=== PATIENT | female | born 1965 | race Caucasian/White ===

== ENCOUNTER 2016-11-27 08:00 | Outpatient (CLI) | payer MEDICARE, MEDICAID | END 2016-11-27 08:01 | disposition home or self-care (01) | DX: R82.99 Other abnormal findings in urine (principal) ==

== ENCOUNTER 2017-01-11 09:24 | Outpatient (CLI) | payer MEDICARE, MEDICAID | END 2017-01-11 09:25 | disposition home or self-care (01) | DX: E55.9 Vitamin D deficiency, unspecified (principal); E03.9 Hypothyroidism, unspecified; Z79.899 Other long term (current) drug therapy ==

== ENCOUNTER 2017-07-18 11:08 | Outpatient (CLI) | payer MEDICARE, MEDICAID ==
--- NOTE | 2017-07-18 12:45 | Ultrasound Report ---
PELVIC ULTRASOUND: 07/18/2017 CLINICAL INDICATION: Postmenopausal bleeding, left ovarian cyst on office ultrasound. TECHNIQUE: Transabdominal pelvic ultrasound performed for global evaluation. Real-time scanning per formed and static images obtained. FINDINGS: The uterus is anteverted, measuring 6.9 x 5.2 x 3.7 cm. The endometrial echo complex is t hickened for a postmenopausal patient, measuring 14 mm. No focal myometrial lesion is seen. The rig ht ovary is not confidently identified on transabdominal imaging. There is a large cyst in the left adnexa, measuring 9.1 x 6.3 x 5.9 cm, likely ovarian in origin, but no definite surrounding ovarian t issue can be identified on transabdominal imaging. No free fluid is present. IMPRESSION: 1. ENDOMETRIAL HYPERPLASIA FOR A POSTMENOPAUSAL PATIENT. 2. A 9.1 CM LEFT ADNEXAL CYST. WHILE THIS MAY BE OVARIAN IN ORIGIN, DEFINITE OVARIAN TISSUE COULD N OT BE IDENTIFIED ON TRANSABDOMINAL IMAGING. JOB #: [id number] EXT JOB #:[id number]
== END 2017-07-18 11:09 | disposition home or self-care (01) ==
LOC: DI 11:08
PROVIDERS: ATTEND Obstetrics & Gynecology
DX: D27.1 Benign neoplasm of left ovary (principal); N85.00 Endometrial hyperplasia, unspecified
CPT/HCPCS: 76856

== ENCOUNTER 2017-09-30 08:41 | Outpatient (CLI) | payer MEDICARE, MEDICAID ==
[2017-09-30 12:56] LABS: ALBUMIN/GLOBULIN RATIO 1.3 (1.0-2.2); ALKALINE PHOSPHATASE 54 IU/L (42-121); ALT ALANINE AMINOTRANSFERASE 22 IU/L (10-60); AST ASPARTATE AMINOTRANSFERASE 26 IU/L (10-42); BILIRUBIN,TOTAL 0.7 mg/dL (0.2-1.0); BUN - BLOOD UREA NITROGEN 13 mg/dL (6-20); CALCIUM 8.6 mg/dL (8.5-10.3); CARBON DIOXIDE - CO2 28 mmol/L (21-32); CHLORIDE 100 mmol/L (101-111); CREATININE 0.8 mg/dL (0.4-1.0); GFR - MDRD 76 (>89); GLUCOSE 86 mg/dL (70-100); SODIUM 137 mmol/L (135-145)
[2017-09-30 13:15] LABS: THYROID STIMULATING HORMONE 9.66 uIU/mL (0.34-5.60)
[2017-09-30 15:05] LABS: FREE T4 (FREE THYROXINE) 0.8 ng/dL (0.58-1.64)
== END 2017-09-30 08:42 | disposition home or self-care (01) ==
LOC: LAB.N 08:41
PROVIDERS: ATTEND Family Medicine
DX: F32.3 Major depressive disorder, single episode, severe with psychotic features (principal); E03.9 Hypothyroidism, unspecified; Z51.81 Encounter for therapeutic drug level monitoring; Z79.899 Other long term (current) drug therapy
CPT/HCPCS: 36415; 80053; 84439; 84443

== ENCOUNTER 2017-10-01 14:57 | Outpatient (CLI) | payer MEDICARE, MEDICAID ==
[2017-10-01 15:18] LABS: BASOPHILS % (AUTO) 0.5 %; EOSINOPHILS # (AUTO) 0.3 10^3/uL (0.0-0.7); HGB - HEMOGLOBIN 11.7 g/dL (12.0-16.0); LYMPHOCYTES # (AUTO) 1.4 10^3/uL (1.5-3.5); LYMPHOCYTES % (AUTO) 21.7 %; MEAN CORPUSCULAR HEMOGLOBIN 30.3 pg (27.0-31.0); MEAN CORPUSCULAR HGB CONC 33.5 g/dL (32.0-36.0); MEAN CORPUSCULAR VOLUME 90.2 fL (81.0-99.0); MEAN PLATELET VOLUME 9.4 fL (7.9-10.8); MONOCYTES # (AUTO) 0.6 10^3/uL (0.0-1.0); MONOCYTES % (AUTO) 9.6 %; NEUTROPHILS # (AUTO) 4.1 10^3/uL (1.5-6.6); NEUTROPHILS % (AUTO) 63.2 %; PLT - PLATELET COUNT 140 10^3/uL (130-450); RED BLOOD COUNT 3.87 10^6/uL (4.20-5.40); RED CELL DISTRIBUTION WIDTH 13.8 % (12.0-15.0); WHITE BLOOD COUNT 6.5 x10^3/uL (4.8-10.8)
[2017-10-01 15:54] LABS: HCG,QUALITATIVE BLOOD NEGATIVE
== END 2017-10-01 14:58 | disposition home or self-care (01) ==
LOC: LAB 14:57
PROVIDERS: ATTEND Obstetrics & Gynecology
DX: Z01.812 Encounter for preprocedural laboratory examination (principal); R19.04 Left lower quadrant abdominal swelling, mass and lump
CPT/HCPCS: 36415; 84703; 85025; 86850; 86900; 86901

== ENCOUNTER 2017-10-02 10:34 | Inpatient (IN) | payer MEDICARE, MEDICAID ==
[~2017-10-02 10:34] MED LIST: CELECOXIB 100 MG CAPSULE PO ONE; SCOPOLAMINE PATCH TOP ONE
[2017-10-02] MEDS ORDERED: LACTATED RINGERS 1,000 ML IV ONE ×3 (11:15→14:56)
--- NOTE | 2017-10-02 11:22 | PREOP HISTORY & PHYSICAL ---
DATE OF ANTICIPATED SURGERY: 10/02/2017 IDENTIFICATION: A 52-year-old G0. HISTORY OF PRESENT ILLNESS: Patient is a patient of [facility] who presents for her preoperative visit. She has been scheduled for 10/02/2017 , laparoscopic bilateral salpingo-oophorectomy and hysteroscopy and D and C. The patient had an episode of postmenopausal bleeding. She saw Dr. Clemons on 07/15/2017 after not having any bleeding for the last 4 years previously. Workup revealed 07/18/2017 pelvic ultrasound that the uterus was anteverted, measuring 6.9 x 5.2 x 3.5 cm. Endometrial echo complex measured 14 mm. No focal myometrial lesion. Right ovary not confidently identified. Large cyst in the left adnexa measuring 9.1 x 6.3 x 5.9 cm, likely ovarian in origin, but no definitive surrounding ovarian tissue could be identified. No free fluid. Her most recent Pap smear of 02/16/2013 was negative, as well as a screen for the high risk human papillomavirus. Given these findings, I recommended to the patient that we proceed to a laparoscopic bilateral salpingo-oophorectomy and hysteroscopy, dilatation and curettage. I discussed with her the risks, benefits, alternatives, indications , expectations of surgery, including the risk for hemorrhage, infection, and damage to surrounding organs, which may be an inadvertent laceration cauterization or ligation of adjacent intestines, ureters, and bladder. Particularly with a hysteroscopy, there may be a chance for an inadvertent uterine perforation. If there were a concern for malignancy, I may have to proceed to a hysterectomy. With this procedure, she will no longer have periods , nor will she be able to have children. After all the patient's questions were answered to her satisfaction, she verbalized her desire to proceed with surgery. Consent forms have been signed. The patient otherwise is doing well. Denies any nausea, vomiting, fevers, chills, diarrhea, constipation. She is accompanied today with her power nut runner operator, Autumn. The patient is developmentally delayed and has the mentation of a 7th or 8th grade level. She is her own power of cleaning associate. Her mother is Barbara Corey, and she lives by herself. Her other caretakers that we have been seeing here in the office are Laurie and Mari from [employer]. PAST MEDICAL HISTORY 1. Developmental delay. 2. Overactive bladder. 3. History of right breast mass. 4. Vitamin D deficiency. PAST SURGICAL HISTORY 1. Right breast biopsy. 2. Cholecystectomy. 3. Appendectomy. ALLERGIES: NO KNOWN DRUG ALLERGIES. MEDICATIONS 1. Two gummy multivitamins. 2. Levothyroxine 50 mcg. 3. Vitamin D. 4. Venlafaxine 150 mg and 37.5 mg daily. 5. Spironolactone 50 mg. 6. Oxybutynin 30 mg. SOCIAL HISTORY: The patient denies any tobacco, alcohol, or illicit drug use. Again, she is developmentally delayed. She does live by herself and has supplemental care with [employer]. She likes [employer], the [employer] , Edna Potter, Raquel Potter, and Clyde Garcia. PAST OBSTETRICAL HISTORY: Nulligravida. PAST GYNECOLOGIC HISTORY: She has been menopausal for at least 4 years. FAMILY HISTORY: Noncontributory. PHYSICAL EXAMINATION VITAL SIGNS: Height is 5 feet, weight is 144 pounds, blood pressure 98/64. GENERAL: The patient is a well-developed, well-nourished, female, in no apparent distress. She definitely acts like a developmentally delayed adult. She is very pleasant and will get quite excited about topics that she is interested in. She is, however, having difficulty answering more complex questions and will look towards her caregiver for answers. HEENT: The patient does wear glasses. She does look she is presbyopic. CARDIOVASCULAR: Rate is regular. No murmurs, rubs. LUNGS: Lungs are clear to auscultation bilaterally. ABDOMEN: Soft, nontender. No masses, rebound, rigidity or guarding. LABORATORY DATA: Most recent laboratories were done by her primary care provider, Dr. Ray on 09/30/2017. Sodium was 137, potassium 3.8, BUN 13, creatinine 0.8, glucose 88, AST 26, ALT 22. TSH is elevated at 9.66, free T4 is normal at 0.8. ASSESSMENT 1. A 52-year-old G0. 2. Postmenopausal bleeding. 3. Thickened endometrium. 4. Left ovarian mass, most likely a benign cyst. PLAN 1. We will proceed to a scheduled laparoscopic bilateral salpingo-oophorectomy and hysteroscopy, and dilatation and curettage on 10/02/2017. 2. I discussed with the patient that though I intend to only do a laparoscopic bilateral salpingo-oophorectomy, should there be a concern for malignancy, I may have to proceed to a hysterectomy. She understands this and verbally agrees to it. Because of this, a CBC and type and screen will be obtained in addition to a serum hCG. 3. Prescriptions for ibuprofen and Tylenol have been faxed to [facility] in [place], [place]. A handwritten prescription for Vicodin has been given to the patient for breakthrough pain. 4. Patient to see me in 2 weeks for a routine postop visit. 5. Patient to call me should she have any worsening fevers, chills, abdominal pain, or vaginal bleeding. TD: 10/01/2017 19:35 MTDD
[2017-10-02] MEDS ORDERED: ceFAZolin 1 GM VIAL IV ONE (12:30)
[2017-10-02] MEDS ORDERED: NEOSTIGMINE 1 MG/1 ML 10 ML MDV IVP ONE (12:30)
[2017-10-02] MEDS ORDERED: PROPOFOL 200 MG/20 ML VIAL IVP ONE (12:30)
[2017-10-02] MEDS ORDERED: ONDANSETRON 4 MG/2 ML VIAL IVP ONE (12:30)
[2017-10-02] MEDS ORDERED: ROCURONIUM 50 MG/5 ML VIAL IVP ONE (12:30)
[2017-10-02] MEDS ORDERED: SUCCINYLCHOLINE 200 MG/10 ML VIAL IVP ONE (12:30)
[2017-10-02] MEDS ORDERED: GLYCOPYRROLATE 1 MG/5 ML VIAL IVP ONE (12:30)
[2017-10-02] MEDS ORDERED: DEXAMETHASONE 4 MG/ML VIAL IVP ONE (12:30)
[2017-10-02] MEDS ORDERED: PHENYLEPHRINE 50 MG/5 ML VIAL IV ONE (12:30)
[2017-10-02] MEDS ORDERED: MIDAZOLAM 2 MG/2 ML VIAL IVP ONE (12:30)
[2017-10-02] MEDS ORDERED: KETOROLAC 30 MG/ML VIAL IVP ONE (12:30)
[2017-10-02] MEDS ORDERED: ePHEDrine 50 MG/ML VIAL IVP ONE (12:30)
[2017-10-02] MEDS ORDERED: HYDROmorphone 1 MG/ML SYRINGE IM ONE (12:30)
[2017-10-02] MEDS ORDERED: fentaNYL 100 MCG/2 ML VIAL IVP ONE (12:30)
[2017-10-02] MEDS ORDERED: LIDOCAINE 1%-EPI 1:100000 20 ML MDV SUBQ ONE (13:06)
--- NOTE | 2017-10-02 15:41 | OPERATIVE REPORT ---
Operative Report - Other Other Information/Narrative: Date of operation: 10/02/2017 Surgeon: Kamilah Tinoco DO FACOG Road Machine Runner: Rodrick Sorto MD FACOG Anesthetists: 1. Juarez Franco CRNA 2. Ernestina Vela CRNA Anesthesia: GET Pre-Op Dx: 1. 52 yo G0 2. Postmenopausal bleeding 3. Left ovarian mass Post-Op Dx: 1. 52 yo G0 2. Postmenopausal bleeding 3. Left ovarian endometrioma 4. Abdominal and pelvic adhesions Procedures: 1. Attempted laparoscopy via Tessa technique 2. Exploratory laparotomy 3. Left salpingo-oophorectomy 4. Adhesiolysis between small intestines and uterine fundus 5. Hysteroscopy dilation and curettage Findings: 1. Anterior wall adhesions to both the small bowel and omentum 2. Left ovarian endometrioma 3. Adhesion between the small bowel and right uterine fundus 4. Surgically absent right adnexa 5. Hypertrophic endometrium 6. Post-op plain films of pelvis and ovaries negative for retained surgical instruments Specimens: 1. Left ovary and fallopian tube 2. Pap smear 3. Endometrial curettings Drains: 1. Perkins catheter to gravity 2. Prevena wound vacuum EBL: 300 mL Complications: None Dictation: [id number]
[2017-10-02] MEDS: HYDROmorphone 1 MG/ML SYRINGE ONE ×2 (15:42→15:55)
[2017-10-02] MEDS ORDERED: SODIUM CHLORIDE FLUSH 0.9% 10 ML SYRINGE ONE (15:46)
[2017-10-02] MEDS ORDERED: ONDANSETRON 4 MG/2 ML VIAL ONE (16:04)
[2017-10-02] MEDS ORDERED: ZOLPIDEM 5 MG TABLET PO PRN (16:10)
[2017-10-02] MEDS ORDERED: diphenhydrAMINE 25 MG CAPSULE PO PRN (16:15)
[2017-10-02] MEDS ORDERED: LORazepam 2 MG/ML VIAL IVP PRN (16:18)
--- NOTE | 2017-10-02 16:35 | XRAY Report ---
DATE OF SERVICE: 10/02/2017 SUPINE ABDOMEN: 10/02/2017 CLINICAL INDICATION: Incorrect instrument count. FINDINGS: Supine views of the abdomen demonstrate clips from previous cholecystectomy. No retained surgical instrument is identified. The bowel gas pattern appears unremarkable. IMPRESSION: NO EVIDENCE OF A RETAINED SURGICAL INSTRUMENT. CRITICAL TEST: RESULTS CALLED TO OPERATING ROOM 2 ON 10/02/2017 AT 1455 HOURS. TD: 10/02/2017 17:34
[2017-10-02] MEDS: oxyCODONE 5 MG TABLET PO SCH ×3 (17:52→20:32)
--- NOTE | 2017-10-02 17:53 | OPERATIVE REPORT ---
DATE OF OPERATION: 10/02/2017 SURGEON: Kamilah Tinoco DO, FACOG MOUNT LOADER: Rodrick Sorto MD, FACOG ANESTHETISTS: 1. Juarez Franco CRNA 2. Ernestina Vela CRNA ANESTHESIA: General endotracheal tube. PREOPERATIVE DIAGNOSES: 1. A 52-year-old G0. 2. Postmenopausal bleeding. 3. Left ovarian mass. POSTOPERATIVE DIAGNOSES: 1. A 52-year-old G0. 2. Postmenopausal bleeding. 3. Left ovarian endometrioma. 4. Abdominal wall and pelvic adhesions. PROCEDURES: 1. Attempted laparoscopic abdominal entrance via Tessa technique. 2. Exploratory laparotomy. 3. Left salpingo-oophorectomy. 4. Adhesiolysis between the small intestine and uterine fundus. 5. Hysteroscopy, dilatation and curettage. FINDINGS: 1. Anterior abdominal wall adhesions to both the small bowel and the omentum in the periumbilical area. 2. Left ovarian endometrioma. 3. Adhesions between the small bowel and the uterine fundus. 4. Surgically absent right adnexa. 5. Hypertrophic endometrium. 6. Postoperative plain films of the pelvis and ovaries, negative for retained surgical instruments. 7. Significant dermatocandidiasis below her breasts and in her perineum. SPECIMENS: 1. Pelvic washings. 2. Left ovary and fallopian tube. 3. Pap smear and HR HPV. 4. Endometrial curettings. DRAINS 1. Perkins catheter to gravity. 2. Prevena wound vacuum. ESTIMATED BLOOD LOSS: 300 mL COMPLICATIONS: None. BRIEF HISTORY: The patient is a patient of [facility] who presented to us with complaints of postmenopausal bleeding. She had been postmenopausal for the last 4 years and had a heavy vaginal bleed. Workup showed that not only did she have a thickened endometrium at 14 mm, but she also had an incidental finding of a left ovarian cyst measuring approximately 9 cm. Given the clinical situation, it was recommended to the patient that we proceed to surgery for more definitive diagnosis and treatment. The patient's history has been more complicated given that she has a developmental delay and is a poor historian. I discussed with her my recommendation to proceed with a laparoscopic bilateral salpingo-oophorectomy and hysteroscopy, dilatation and curettage. I did discuss with the patient that if the cyst had a malignant potential, I would need to proceed to exploratory laparotomy and a hysterectomy. Though hesitant, she understood the conversation and verbalized her desire to proceed with that plan should the suspicion of cancer come up. Furthermore, with this procedure, the patient would no longer be able to have children. After the patient's questions were answered to her satisfaction, she verbalized her desire to proceed with surgery. Consent forms have been signed. OPERATION IN DETAIL: The patient was identified, consented, and taken to the operating room where IV access was already in place. She was then given sequential compression devices which were placed on her lower extremities and turned on. The patient was given Ativan in the preoperative area as well as scopolamine patch 1.5 mg, since she had indicated that she has a tendency to have nausea and vomiting. She also received Celebrex preoperatively in order to improve her postoperative pain. The patient was given satisfactory general endotracheal tube anesthesia as per Ernestina Vela. Juarez Franco later helped with anesthesia during the case. The patient was then prepped and draped in a normal sterile fashion in lithotomy position using the Yellofin stirrups. Since the patient was developmentally delayed, she would not consent to any examinations unless they were absolute. I had not had the opportunity to examine the patient adequately prior to surgery. Gross examination revealed that she had some significant dramatic candidiasis underneath her breasts and also in her groin. Furthermore, the patient had significant midline vertical incisions in her abdomen and pelvis. These midline incisions were directly above and below her umbilicus, both to the right of the umbilicus. It appeared that she had 2 separate surgeries since the pattern of the scars were different. One scar was periumbilical and went superiorly, the other one was also periumbilical and went inferiorly. These scars were not consistent with what I would expect from her given history of an appendectomy as well as a cholecystectomy. Given this new surgical finding, I elected to proceed with laparoscopy, but with an open Tessa technique. Not knowing the exact procedures she had in the past, I was particularly worried about damaging intestines or any other intra-abdominal organs. A Perkins catheter was placed in the patient's bladder. She was then given a timeout, which correctly identified herself and the anticipated procedures. A subumbilical incision that was transverse measuring approximately 2.5 inches was then made. The incision was then carried down to the fascia. The patient' s tissues were remarkably thin in her anterior abdominal wall. Her tissue not only was thin, but also very hard to define the layers. It was quite easy to get through to her peritoneum. The peritoneum was then grasped and opened sharply. The omentum was seen. However, with the patient's anatomy, some areas of the tissue did not seem to be peritoneal-like. Palpation of the area was questionable for entrance into the abdomen. I bluntly dissected the tissue going more towards the patient's left abdomen and felt that the entrance to the peritoneum had been made. A Tessa trocar was then placed into the abdomen. CO2 was then used to insufflate the abdomen. I could not get satisfactory visualization as all I saw was omentum and questioned if I had truly gotten into the abdomen at all. Given the difficult anatomy and poor skin tissue along with the unknown surgical history, I decided that laparoscopy was not in the patient's best interest. I then decided to go ahead and close this subumbilical incision. The fascia was then closed with 0-Vicryl and the skin was then reapproximated with 4-0 Monocryl. Dermabond was placed on top of the incision. Given I did not feel comfortable with laparoscopy, I decided to proceed with exploratory laparotomy. A Pfannenstiel skin incision was made approximately 2 fingerbreadths above the level of pubic symphysis. An approximately 5 inch incision was made. Again, the patient's tissue seemed to be poor. There were quite a lot of small areas of bleeding. The fascia was extremely thin and the rectus muscles were very atrophic as well. The peritoneum was then identified and entered sharply. An O'Faizan-O'Moore abdominal retractor was then placed in the abdomen and the intestines packed away. Pelvic washings were then obtained. Inspection of the pelvis revealed a significant adhesion between the small intestine and the right fundal portion of the uterus. In addition, the patient did have a significant left adnexal mass that was fairly adhesed to the left ovarian fossa. The peritoneal sidewall was very thin and this was grasped, and an incision was made into the peritoneum. The sidewall peritoneum was then opened up and the left adnexa was then slowly and sharply dissected. Given that the adnexa was very close to the location of the ureter, the left ureter was dissected out retroperitoneally at inferior to the level of the pelvic brim. Slow vermiculation was noted of the ureter. Next, after ensuring that the ureter was well away from our area of surgical excision, I proceeded to both bluntly and sharply dissect the left adnexa; however, in doing so, I had ruptured the mass. A large amount of dark blood liquid was visualized. Clinically, this appeared to be an endometrioma. Now that the cyst had collapsed it was much easier to excise the adnexa. This was done with a LigaSure. Though the left adnexa was excised, the cyst wall of the endometrioma was still quite adhesed to the left pelvic sidewall. With sharp and dull dissection, the cyst wall was peeled off the peritoneum. Some bleeding was noted in the area of the retroperitoneal dissection. The patient was given 2 gm of ancef after the abdomen was opened; I had forgotten to give antibiotics to the patient prior to making the laparotomy. Attention was then turned towards the right adnexa. Since the small bowel was impeding visualization, I decided to lyse the small intestine from the uterine fundus. Incision was made on top of the uterus and the small intestine was then dissected off the uterus. An approximately 3 x 4 cm portion of the intestinal serosa was exposed. This area was then oversewed using 3-0 Vicryl in a running fashion. Hemostasis was noted on the uterine fundus. Inspection of the right adnexa found that the adnexa was actually surgically absent. Some bleeding was noted in the area of the exposure of the right peritoneal wall where the adhesiolysis had been performed. The area where the peritoneum on the right sidewall was opened was then closed with a running stitch of 3-0 Vicryl. Hemostasis was noted. Attention was then turned towards the left pelvic sidewall where there was some bleeding noted. Surgicel was placed on this area and satisfactory hemostasis was noted. At this point in time, the ovarian portion of the surgery had been completed. The peritoneum was closed with a running stitch of 2-0 Vicryl and that same stitch was used to reapproximate the rectus muscles. Fascia was then closed with 0-Vicryl and the skin was reapproximated with 4-0 Monocryl. At the end of the case, a Prevena wound VAC was placed on top of this incision and was found to be working satisfactorily. During the closure of the Pfannenstiel incision, the circulating nurse had mentioned to me that the counts for the blades were incorrect. I then ordered an abdominal pelvic plain film study. This was performed, and no blades were noted. Surgical clips were seen, but no operative instruments were noted in the abdomen or pelvis. Finally, the hysteroscopy, dilatation and curettage was then performed. A speculum was placed in the vagina and a single-tooth tenaculum was placed on the posterior lip of the cervix. The cervix was then serially dilated to a 7- Yoruba. A Pap smear was performed since the patient was due for another Pap smear, and I knew that she would not appreciate another visit for a Pap smear. A hysteroscope using saline solution was then placed into the uterus. The endometrium was visualized, and it appeared to be hypertrophic. The endometrium was then curetted. Specimens were obtained and sent off. At this point in time, the procedure had been completed. All instruments were removed out of the vagina, and the cervix and the vagina were hemostatically stable. The patient did have a small perineal tear from the speculum. This second degree tear was reapproximated using 4-0 Monocryl. At this point in time, the entire operation had been completed. All sponge, lap , and needle counts were correct x2 as per nurse report. Also, the final report from Radiology with regard to the plain films was consistent with my interpretation of the x-ray intraoperatively that there were no other surgical instruments left in the abdomen or pelvis. The patient was taken to the recovery room in stable condition. Given that the patient had a mini laparotomy , I will keep her overnight and hopefully discharge her to home tomorrow after she is able to eat, ambulate, urinate, and control her pain satisfactorily. I will anticipate seeing the patient weekly for the next 2 weeks for removal of her Prevena wound VAC as well as for incision check. The patient's prescriptions will need to be modified, given that she had an exploratory laparotomy. We will await the results of the Pap smear, left adnexa, pelvic washings and endometrial curettings. I have spoken to the patient's mother, Barbara, and informed her of my findings and June's current state. TD: 10/02/2017 18:51 JESSICA
[2017-10-02] MEDS ORDERED: FLUCONAZOLE 100 MG TABLET PO ONE (18:00)
[2017-10-02] MEDS: ACETAMINOPHEN 500 MG TABLET PO SCH (18:09)
[2017-10-02] MEDS: CELECOXIB 100 MG CAPSULE PO SCH (18:10)
[2017-10-02] MEDS: LACTATED RINGERS 1,000 ML IV SCH (18:10)
[2017-10-02] MEDS: ONDANSETRON 4 MG/2 ML VIAL IVP PRN (18:11)
[2017-10-02] MEDS: DOCUSATE SODIUM 100 MG CAPSULE PO SCH (20:51)
[2017-10-02] MEDS: SODIUM CHLORIDE FLUSH 0.9% 10 ML SYRINGE IVP SCH (21:12)
[2017-10-03] MEDS: oxyCODONE 5 MG TABLET PO SCH ×6 (01:25→20:27)
[2017-10-03] MEDS: LACTATED RINGERS 1,000 ML IV SCH (03:07)
[2017-10-03] MEDS: ACETAMINOPHEN 500 MG TABLET PO SCH ×3 (06:21→20:24)
[2017-10-03] MEDS: DOCUSATE SODIUM 100 MG CAPSULE PO SCH ×3 (06:22→20:24)
[2017-10-03] MEDS: LEVOTHYROXINE 75 MCG TABLET PO SCH (06:22)
[2017-10-03] MEDS: SODIUM CHLORIDE FLUSH 0.9% 10 ML SYRINGE IVP SCH ×3 (06:43→20:25)
[2017-10-03] MEDS: SODIUM CHLORIDE FLUSH 0.9% 10 ML SYRINGE IVP PRN ×3 (06:44→12:37)
[2017-10-03] MEDS: ONDANSETRON 4 MG/2 ML VIAL IVP PRN ×2 (06:44→12:37)
[2017-10-03] MEDS: PANTOPRAZOLE 40 MG VIAL IVP SCH ×2 (06:59→16:24)
[2017-10-03 09:11] LABS: HB2 TOTAL 10.3 g/dL; HEMOGLOBIN A1C 0.4 g/dL; HEMOGLOBIN A1C % 5.7 % (4.6-6.2)
[2017-10-03] MEDS: VENLAFAXINE ER 75 MG CAPSULE PO SCH (09:18)
[2017-10-03] MEDS: POLYETHYLENE GLYCOL 3350 17 GM PACKET PO SCH (09:18)
[2017-10-03] MEDS: CELECOXIB 100 MG CAPSULE PO SCH ×2 (09:18→20:24)
[2017-10-03] MEDS: VENLAFAXINE ER 37.5 MG CAPSULE PO SCH (09:18)
--- NOTE | 2017-10-03 13:01 | PROVIDER PROGRESS NOTE ---
Subjective - Prog Note Date Prog Note Date: 10/03/17 Prog Note Time: 12:59 - Subjective Pt reports feeling: Worse Subjective: Patient sitting in bed. Just received zofran. States her tummy is hurting her. [employer] caregivers not present, nor her mother Barbara. I had seen June earlier this AM and she was also alone at that time. June had ate 3/4 of her breakfast and lunch. Per nurse report, the GINSENG FARMER had helped June ambulate to and from the restroom. June feels tired currently. Objective - Vital Signs/Intake & Output Reviewed Vital Signs: Yes Vital Signs: Vital Signs x48h Temp Pulse Resp BP Pulse Ox 10/03/17 12:00 98.6 F 94 17 92/60 98 10/03/17 08:08 98.8 F 90 19 95/62 97 Intake & Output: Intake & Output 09/30/17 10/01/17 10/02/17 10/03/17 23:59 23:59 23:59 23:59 Intake Total 200 2360.000 Output Total 700 Balance -500 2360.000 - Objective General Appearance: positive: Other (Looks tired and sad. Wearing glasses.) Abdomen: positive: Other (Distended abdomen. Prevena wound vac in place and working well.) - Lab Results Fish Bones: 10/03/17 08:43 Other Labs: Lab Results x24hrs 10/03/17 10/03/17 Range/Units 08:43 08:43 Glucose 154 H (70-100) mg/dL Glycated Hemoglobin 5.7 (4.6-6.2) % Estim Average Glucose 117 H (70-100) Assessment/Plan - Problem List (1) Status post unilateral salpingo-oophorectomy Impression: 52 yo G0 S/p failed laparoscopic entry via Tessa, exploratory laparotomy, LSO, adhesiolysis and hysteroscopy D&C 10/02/2017 Slow recovery Mild ileus PT to come help walk the patient. Ambulate TID. Nutrition consult to help patient make better eating decisions Rx diflucan and oxycodone for home Will need to have PCP write increase levothyroxine from 50 to 75 mcg given TSH of 9. Will need orders for home care of Prevena wound vac Anticipate discharge to home when the patient's pain is tolerated and no significant nausea.
[2017-10-03] MEDS ORDERED: MAGNESIUM HYDROXIDE 2,400 MG/30 ML UDC PO SCH (16:30)
[2017-10-04] MEDS: oxyCODONE 5 MG TABLET PO SCH ×3 (02:05→10:40)
[2017-10-04] MEDS ORDERED: BISACODYL 10 MG SUPP PR SCH (05:00)
[2017-10-04] MEDS: ACETAMINOPHEN 500 MG TABLET PO SCH (05:53)
[2017-10-04] MEDS: SODIUM CHLORIDE FLUSH 0.9% 10 ML SYRINGE IVP SCH (05:55)
[2017-10-04] MEDS: DOCUSATE SODIUM 100 MG CAPSULE PO SCH (06:00)
[2017-10-04] MEDS: LEVOTHYROXINE 75 MCG TABLET PO SCH (06:00)
[2017-10-04] MEDS: PANTOPRAZOLE 40 MG VIAL IVP SCH (06:00)
[2017-10-04 08:15] VITALS: BP 104/69
--- NOTE | 2017-10-04 09:27 | PROVIDER PROGRESS NOTE ---
Subjective - Prog Note Date Prog Note Date: 10/04/17 Prog Note Time: 09:23 - Subjective Pt reports feeling: Improved Subjective: Patient ambulating in the hallway with ALFREDA Triana. Smiling and feeling better. Hesitant if she should go home. (Review of [facility] paper chart showed she had an exploratory laparotomy, appendectomy, pelvic lavage, partial right oophorectomy , partial omentectomy for a ruptured appendix. Hospitalized for 3 weeks for this in 1987 when she was 22. Patient also had a failed laparoscopic attempt for choleycystectomy which was then coverted into an open cholecystectomy in 2004. Patient in house for 3 days.) Tolerable nausea-- patient reports this happens occasionally at home. Urinating well. Pain controlled. Objective - Vital Signs/Intake & Output Reviewed Vital Signs: Yes Vital Signs: Vital Signs x48h Temp Pulse Resp BP Pulse Ox 10/04/17 08:00 98.6 F 82 18 104/69 94 10/04/17 04:00 98.2 F 95 18 100/72 94 Intake & Output: Intake & Output 10/01/17 10/02/17 10/03/17 10/04/17 23:59 23:59 23:59 23:59 Intake Total 200 3080.000 120 Output Total 700 Balance -500 3080.000 120 - Objective General Appearance: positive: No acute distress Eyes Bilateral: positive: Normal inspection Abdomen: positive: Non-tender, Other (Prevena wound vac removed. Incision clean , intact. Some small area of bleed where the wound vac was directly contacting the incision. Small area of ecchymosis by subumbilical fold incision. Dermabond on that incision; clean, dry and intact.) Skin: positive: Color nml - Lab Results Fish Bones: 10/03/17 08:43 Assessment/Plan - Problem List (1) Status post unilateral salpingo-oophorectomy Impression: 52 yo G0 S/p 10/02/2017 failed open Tessa intraabdominal entrance, exploratory laparotomy , adhesiolysis, LSO, hysteroscopy dilation and curettage. Normal but slow recovery Discharge to home today Weekly incision check Call for worsening fevers, chills, abdominal pain or vaginal bleeding. Spoke to Cristiano Archibald at [employer] at [phone] and relayed her discharge orders. Also spoke to June Jimenez's mom, at [phone] and relayed the discharge plan. Rx for oxycodone and diflucan for home care. TSH elevated and will likely need to have her thyroid meds increased from 50 to 75 mcg daily. Discharge summary: [id number] Discharge Plan Disposition: Home, Self Care Condition: Good Diet: Regular Activity Restrictions: Activity as Tolerated (No lifting more than 10 pounds) Shower Restrictions: No Weight Bearing: Full Weight No Smoking: If you smoke, Please STOP! Call for help. Follow-up with: Reginald Ray MD [Primary Care Provider] -
[2017-10-04] MEDS: POLYETHYLENE GLYCOL 3350 17 GM PACKET PO SCH (10:39)
[2017-10-04] MEDS: VENLAFAXINE ER 75 MG CAPSULE PO SCH (10:41)
[2017-10-04] MEDS: CELECOXIB 100 MG CAPSULE PO SCH (10:41)
[2017-10-04] MEDS: VENLAFAXINE ER 37.5 MG CAPSULE PO SCH (10:41)
--- NOTE | 2017-10-04 12:02 | DISCHARGE SUMMARY ---
DATE OF ADMISSION: 10/02/2017 DATE OF DISCHARGE: 10/04/2017 DIAGNOSIS ON ADMISSION 1. A 52-year-old G0. 1. Left ovarian mass. 2. Postmenopausal bleeding with thickened endometrial lining. DIAGNOSES ON DISCHARGE 1. A 52-year-old G0. 2. Status post 10/02/2017 failed open Tessa intraabdominal laparoscopic entrance, exploratory laparotomy, adhesiolysis, left salpingo-oophorectomy, hysteroscopy, dilatation and curettage. 3. Slow recovery. 4. Chronic dermatocandidiasis. 5. Subclinical hypothyroidism. BRIEF HISTORY: June is a patient of [facility], [place], who was noted to have postmenopausal bleeding. Workup revealed a thickened endometrium of approximately 15 mm. In addition, there was incidental finding of a 9 cm cyst-like structure on the left adnexa. June was admitted to the hospital on 10/02/2017, for a scheduled laparoscopic bilateral salpingo-oophorectomy and hysteroscopy, dilatation and curettage. However, June is developmentally delayed and is quite private. It was not until I was able to examine June under anesthesia that I realized that her situation was more complex than anticipated. June had some significant dermatocandidiasis underneath her breasts, as well as in her perineum and inguinal folds. Furthermore, though I understood that June had an appendectomy and cholecystectomy in the past, I did not expect to find scar tissue patterns on her abdomen as I anticipated them. June had 2 old scars that were vertical in the midline. One appeared to start umbilically and then superiorly. The other one was umbilically and then inferiorly. After surgery, I did review the chart and did find out in old records that in 1987, June had a ruptured appendectomy with pelvic abscesses. She underwent an exploratory laparotomy, pelvic washout, partial omentectomy, appendectomy, partial right oophorectomy. June was in the hospital for 3 weeks at that time. In 2004, June also underwent a cholecystectomy. Although the intent was a laparoscopic excision, June actually had to have a conversion to an open laparotomy. Given these clinical findings, I decided to proceed with an open laparoscopic entrance to the abdomen via the Tessa technique. I encountered significant omental adhesions and did not feel comfortable proceeding with laparoscopy. In retrospect, this is consistent with June's history of a ruptured appendectomy with peritonitis. The Tessa incision was closed and exploratory laparotomy via Pfannenstiel skin incision was then performed. There were significant adhesions of the left adnexa. The left adnexa was excised and found to clinically be an endometrioma. A knuckle of small bowel was adhesed to the right fundal portion of the uterus. This was lysed and then the knuckle of small intestine was oversewn since the serosa had been penetrated to the level of the muscularis. Further inspection of the right adnexa showed that it was surgically excised. The laparotomy was then closed after hemostasis was obtained. June then underwent hysteroscopy, dilatation and curettage. June's hospital course has been a little bit more difficult because June has some anxiety, most likely given her operative history. In addition, because June is developmentally delayed, it is difficult for her to verbalize her concerns and feelings. Clinically, June is doing quite well. She is ambulating and tolerating a regular diet. She is urinating without difficulty and her pain is controlled with oral medications. I did place a Prevena wound VAC initially on her Pfannenstiel incision, but due to the logistics of taking care of the wound VAC, I did remove it today, on postoperative day #2, A new prescription for oxycodone has been made available for June since I only gave her Vicodin at her preop visit. Although I also treated June with Diflucan 150 mg x1 tablet, my guess is she will likely need to treat this dermatocandidiasis on a chronic basis because of poor hygiene. Finally, I will leave Dr. Ray to decide if June's Levothyroxine should be increased from 50 to 75 mcg p.o. daily given the elevated TSH of approximately 9. June is to see me on a weekly basis for the next 2 weeks. I explained to service alternatives, specifically Cristiano Archibald at [phone], that June will need to continue her routine medications in addition to her other pain medications, specifically Motrin 800 mg and Tylenol 1 g. June will also have the oxycodone available to her for breakthrough pain. Again, June has a prescription for Diflucan for her chronic deramatocandidiasis. Finally, I have spoken to Barbara, June's mother, at [phone] and relayed June's course and discharge plan to her. June is to call should she have any worsening fevers, chills, abdominal pain or vaginal bleeding. TD: 10/04/2017 13:01 JESSICA
== END 2017-10-04 13:20 | disposition home or self-care (01) | DRG 761 ==
LOC: SDS 10:34 → OBS 16:09 → OBSVTOIN 10-03 13:33 → MS2 10-03 14:53
PROVIDERS: ADMIT Obstetrics & Gynecology; ATTEND Obstetrics & Gynecology
PROC: 0UT10ZZ Resection of Left Ovary, Open Approach (ICD-10-PCS; 2017-10-02)
PROC: 0DN80ZZ Release Small Intestine, Open Approach (ICD-10-PCS; 2017-10-02)
PROC: 0DQ80ZZ Repair Small Intestine, Open Approach (ICD-10-PCS; 2017-10-02)
PROC: 0UQC0ZZ Repair Cervix, Open Approach (ICD-10-PCS; 2017-10-02)
PROC: 0UDB8ZX Extraction of Endometrium, Via Natural or Artificial Opening Endoscopic, Diagnostic (ICD-10-PCS; 2017-10-02)
PROC: 0WJJ4ZZ Inspection of Pelvic Cavity, Percutaneous Endoscopic Approach (ICD-10-PCS; 2017-10-02)
PROC: 0UT60ZZ Resection of Left Fallopian Tube, Open Approach (ICD-10-PCS; principal; 2017-10-02 11:45)
DX: N80.1 Endometriosis of ovary (principal); N95.0 Postmenopausal bleeding; N85.00 Endometrial hyperplasia, unspecified; N99.4 Postprocedural pelvic peritoneal adhesions; R62.50 Unspecified lack of expected normal physiological development in childhood; F41.9 Anxiety disorder, unspecified; B37.2 Candidiasis of skin and nail; E02 Subclinical iodine-deficiency hypothyroidism; N32.81 Overactive bladder; E55.9 Vitamin D deficiency, unspecified; H54.7 Unspecified visual loss; Z79.899 Other long term (current) drug therapy; Z90.721 Acquired absence of ovaries, unilateral; Z90.79 Acquired absence of other genital organ(s); Z90.49 Acquired absence of other specified parts of digestive tract
CPT/HCPCS: 44005; 44602; 57720; 58558; 58720; G0378; 36415; 74018; 82947; 83036

== ENCOUNTER 2018-02-21 09:02 | Outpatient (CLI) | payer MEDICARE, MEDICAID ==
[2018-02-21 12:51] LABS: BASOPHILS # (AUTO) 0.1 10^3/uL (0.0-0.1); BASOPHILS % (AUTO) 1.4 %; EOSINOPHILS # (AUTO) 0.5 10^3/uL (0.0-0.7); HGB - HEMOGLOBIN 10.8 g/dL (12.0-16.0); LYMPHOCYTES # (AUTO) 1.2 10^3/uL (1.5-3.5); LYMPHOCYTES % (AUTO) 23.5 %; MEAN CORPUSCULAR HEMOGLOBIN 29.7 pg (27.0-31.0); MEAN CORPUSCULAR HGB CONC 33.1 g/dL (32.0-36.0); MEAN CORPUSCULAR VOLUME 89.5 fL (81.0-99.0); MEAN PLATELET VOLUME 10.3 fL (7.9-10.8); MONOCYTES # (AUTO) 0.5 10^3/uL (0.0-1.0); MONOCYTES % (AUTO) 9.2 %; NEUTROPHILS # (AUTO) 2.8 10^3/uL (1.5-6.6); NEUTROPHILS % (AUTO) 55.9 %; PLT - PLATELET COUNT 131 10^3/uL (130-450); RED BLOOD COUNT 3.64 10^6/uL (4.20-5.40); RED CELL DISTRIBUTION WIDTH 14.8 % (12.0-15.0); WHITE BLOOD COUNT 4.9 x10^3/uL (4.8-10.8)
[2018-02-21 13:05] LABS: ALBUMIN 3.7 g/dL (3.2-5.5); ALBUMIN/GLOBULIN RATIO 1.2 (1.0-2.2); ALKALINE PHOSPHATASE 48 IU/L (42-121); ALT ALANINE AMINOTRANSFERASE 14 IU/L (10-60); AST ASPARTATE AMINOTRANSFERASE 24 IU/L (10-42); BILIRUBIN,TOTAL 0.7 mg/dL (0.2-1.0); BUN - BLOOD UREA NITROGEN 9 mg/dL (6-20); CALCIUM 8.2 mg/dL (8.5-10.3); CARBON DIOXIDE - CO2 28 mmol/L (21-32); CHLORIDE 102 mmol/L (101-111); CHOL/HDL RATIO 3.3 (<4.4); CHOLESTEROL 150 mg/dL; CREATININE 0.8 mg/dL (0.4-1.0); GFR - MDRD 76 (>89); GLUCOSE 74 mg/dL (70-100); HDL CHOLESTEROL 45 mg/dL; LDL CHOLESTEROL,CALCULATED 89 mg/dL; SODIUM 137 mmol/L (135-145); TOTAL PROTEIN 6.9 g/dL (6.7-8.2); VLDL CHOLESTEROL 16 mg/dL
[2018-02-21 13:42] LABS: THYROID STIMULATING HORMONE 5.93 uIU/mL (0.34-5.60)
[2018-02-21 13:46] LABS: FREE T4 (FREE THYROXINE) 0.77 ng/dL (0.58-1.64)
== END 2018-02-21 23:59 | disposition home or self-care (01) ==
LOC: LAB.N 09:02
PROVIDERS: ATTEND Family Medicine
DX: F32.3 Major depressive disorder, single episode, severe with psychotic features (principal); E03.9 Hypothyroidism, unspecified; Z51.81 Encounter for therapeutic drug level monitoring; Z79.899 Other long term (current) drug therapy
CPT/HCPCS: 36415; 80053; 80061; 83721; 84439; 84443; 85025

== ENCOUNTER 2018-03-20 08:00 | Outpatient (CLI) | payer MEDICARE, MEDICAID ==
[2018-03-20 19:06] LABS: BILIRUBIN,URINE NEGATIVE (NEGATIVE); GLUCOSE, URINE (UA) NEGATIVE (NEGATIVE); KETONES,URINE (UA) NEGATIVE (NEGATIVE); LEUKOCYTE ESTERASE, URINE TRACE (NEGATIVE); NITRITE,URINE NEGATIVE (NEGATIVE); OCCULT BLOOD,URINE NEGATIVE (NEGATIVE); PH,URINE 5.5 PH (5.0-7.5); PROTEIN,URINE NEGATIVE (NEGATIVE); UROBILINOGEN,URINE 0.2 (NORMAL) E.U./dL (NORMAL)
[2018-03-20 19:26] LABS: CLARITY,URINE CLOUDY (CLEAR)
[2018-03-20 19:27] LABS: AMORPHOUS SEDIMENT,UR Few /LPF; BACTERIA,URINE None Seen /HPF (None Seen); RBC,URINE 3 /HPF (0-5); SQUAMOUS EPITHELIAL CELL,UR RARE Squamous (<= Few)
== END 2018-03-20 08:01 | disposition home or self-care (01) ==
LOC: LAB.R 08:00
PROVIDERS: ATTEND Family Medicine
DX: R32 Unspecified urinary incontinence (principal)
CPT/HCPCS: 81001; 87077; 87086; 87181

== ENCOUNTER 2018-08-26 14:59 | Outpatient (CLI) | payer MEDICARE, MEDICAID ==
[2018-08-26 19:05] LABS: BASOPHILS # (AUTO) 0.1 10^3/uL (0.0-0.1); BASOPHILS % (AUTO) 1.3 %; EOSINOPHILS # (AUTO) 0.2 10^3/uL (0.0-0.7); HGB - HEMOGLOBIN 11.9 g/dL (12.0-16.0); LYMPHOCYTES # (AUTO) 1.2 10^3/uL (1.5-3.5); LYMPHOCYTES % (AUTO) 23.9 %; MEAN CORPUSCULAR HEMOGLOBIN 30.1 pg (27.0-31.0); MEAN CORPUSCULAR HGB CONC 32.2 g/dL (32.0-36.0); MEAN CORPUSCULAR VOLUME 93.5 fL (81.0-99.0); MEAN PLATELET VOLUME 10.6 fL (7.9-10.8); MONOCYTES # (AUTO) 0.4 10^3/uL (0.0-1.0); MONOCYTES % (AUTO) 9.2 %; NEUTROPHILS % (AUTO) 60.6 %; PLT - PLATELET COUNT 153 10^3/uL (130-450); RED BLOOD COUNT 3.97 10^6/uL (4.20-5.40); RED CELL DISTRIBUTION WIDTH 13.8 % (12.0-15.0); WHITE BLOOD COUNT 4.9 x10^3/uL (4.8-10.8)
[2018-08-26 19:35] LABS: THYROID STIMULATING HORMONE 8.02 uIU/mL (0.34-5.60)
[2018-08-26 19:37] LABS: FREE T4 (FREE THYROXINE) 0.81 ng/dL (0.58-1.64)
== END 2018-08-26 23:59 | disposition home or self-care (01) ==
LOC: LAB.N 14:59
PROVIDERS: ATTEND Family Medicine
DX: F32.3 Major depressive disorder, single episode, severe with psychotic features (principal); E03.9 Hypothyroidism, unspecified
CPT/HCPCS: 36415; 84439; 84443; 85025

== ENCOUNTER 2019-03-10 08:42 | Outpatient (CLI) | payer MEDICARE, MEDICAID ==
--- NOTE | 2019-03-10 10:14 | Mammography Report ---
Reason: SCREENING MAMMO Procedure Date: 03/10/2019 Accession Number: [id number] / [id number] Procedure: MGN - Screening Mammo Dig Bilat CPT Code: FULL RESULT: EXAM: Screening Mammo Dig Bilat DATE: 03/10/2019 9:12 AM CLINICAL HISTORY: History of right breast cancer status post surgery and radiation therapy. TECHNIQUE: (B) - Bilateral CC and MLO views were obtained. COMPARISON: 12/12/2015, 07/27/2013, 11/13/2012, 05/02/2012 and 10/15/2011 PARENCHYMAL PATTERN: (D) - The breasts demonstrate heterogeneously dense fibroglandular parenchyma bilaterally. FINDINGS: Post therapy changes in the right breast are stable. There are no suspicious masses, calcifications, or areas of distortion on the right.. On the left asymmetric density in the superior posterior breast may have been present on prior studies but is better seen today on the MLO projection. In addition there are some faint calcifications seen on the CC projection in the posterior medial right breast, likely in the inferior breast on the lateral oblique projection. These calcifications may be early vascular calcifications.. IMPRESSION: Needs additional evaluation left breast by spot compression and magnification views. BI-RADS 0. Benign findings right breast. RECOMMENDATION: (ADDMAM) - Recommend additional mammographic views. Left breast BI-RADS CATEGORY: (0) - Incomplete Examination - need additional evaluation. Left breast STANDARD QUALIFYING STATEMENTS: 1. This examination was not reviewed with the aid of Computer-Aided Detection (CAD). 2. A negative or benign imaging report should not preclude biopsy if clinically suspicious findings are present. 3. Dense breasts may obscure an underlying neoplasm. 4. This examination was reviewed without the aid of 3D breast imaging (tomosynthesis).
== END 2019-03-10 08:43 | disposition home or self-care (01) ==
LOC: DI.N 08:42
DX: Z12.31 Encounter for screening mammogram for malignant neoplasm of breast (principal); R92.8 Other abnormal and inconclusive findings on diagnostic imaging of breast; Z85.3 Personal history of malignant neoplasm of breast
CPT/HCPCS: 77067

== ENCOUNTER 2019-03-26 09:29 | Outpatient (CLI) | payer MEDICARE, MEDICAID ==
--- NOTE | 2019-03-26 12:48 | Mammography Report ---
Reason: ABNORMAL MAMMOGRAM Procedure Date: 03/26/2019 Accession Number: [id number] / [id number] Procedure: DAR - Diag Special Views Dig LT CPT Code: FULL RESULT: EXAM: Diag Special Views Dig LT DATE: 03/26/2019 10:31 AM CLINICAL HISTORY: Diagnostic examination. The patient is recalled from screening for left breast asymmetry as well as a separate focus of calcifications. TECHNIQUE: (L) - Left left spot magnified CC, left spot MLO, left spot magnified ML and left ML images are obtained. Focused left breast ultrasound is performed. COMPARISON: 03/10/2019 through 10/15/2011. PARENCHYMAL PATTERN: (A) - The breast(s) demonstrate(s) scattered fibroglandular densities. FINDINGS: The left breast asymmetry in the posterior superior breast dissipates with spot compression and absence of a suspicious mass is confirmed on 3-D tomographic views. The grouping of calcifications in question demonstrates no associated architectural distortion or mass and is not characterized as suspicious or definitely benign on spot magnification views, probably benign finding. There are no suspicious masses, calcifications, or areas of distortion. IMPRESSION: Probably Benign. BI-RADS category 3. RECOMMENDATION: (6MOS) - Recommend 6 month follow-up exam. Left breast calcifications. BI-RADS CATEGORY: (3) - Probably Benign. STANDARD QUALIFYING STATEMENTS: 1. This examination was not reviewed with the aid of Computer-Aided Detection (CAD). 2. A negative or benign imaging report should not preclude biopsy if clinically suspicious findings are present. 3. Dense breasts may obscure an underlying neoplasm. 4. This examination was reviewed with the aid of 3D breast imaging (tomosynthesis).
== END 2019-03-26 09:30 | disposition home or self-care (01) ==
LOC: DI 09:29
PROVIDERS: ATTEND Family Medicine
DX: R92.8 Other abnormal and inconclusive findings on diagnostic imaging of breast (principal)
CPT/HCPCS: 77065; G0279

== ENCOUNTER 2019-05-21 08:00 | Outpatient (CLI) | payer MEDICARE, MEDICAID ==
[2019-05-21 12:27] LABS: BASOPHILS # (AUTO) 0.1 10^3/uL (0.0-0.1); BASOPHILS % (AUTO) 1.4 %; EOSINOPHILS # (AUTO) 0.3 10^3/uL (0.0-0.7); EOSINOPHILS % (AUTO) 6.1 %; HGB - HEMOGLOBIN 11.6 g/dL (12.0-16.0); LYMPHOCYTES # (AUTO) 1.2 10^3/uL (1.5-3.5); LYMPHOCYTES % (AUTO) 23.6 %; MEAN CORPUSCULAR HEMOGLOBIN 29.7 pg (27.0-31.0); MEAN CORPUSCULAR HGB CONC 31.4 g/dL (32.0-36.0); MEAN CORPUSCULAR VOLUME 94.4 fL (81.0-99.0); MEAN PLATELET VOLUME 12.2 fL (7.9-10.8); MONOCYTES # (AUTO) 0.4 10^3/uL (0.0-1.0); NEUTROPHILS # (AUTO) 2.9 10^3/uL (1.5-6.6); NEUTROPHILS % (AUTO) 59.5 %; PLT - PLATELET COUNT 154 10^3/uL (130-450); RED BLOOD COUNT 3.91 10^6/uL (4.20-5.40); RED CELL DISTRIBUTION WIDTH 13.3 % (12.0-15.0); WHITE BLOOD COUNT 4.9 x10^3/uL (4.8-10.8)
[2019-05-21 12:35] LABS: BUN - BLOOD UREA NITROGEN 10 mg/dL (6-20); CALCIUM 8.4 mg/dL (8.5-10.3); CARBON DIOXIDE - CO2 30 mmol/L (21-32); CHLORIDE 105 mmol/L (101-111); CHOL/HDL RATIO 4.1 (<4.4); CHOLESTEROL 175 mg/dL; CREATININE 0.9 mg/dL (0.4-1.0); GFR - MDRD 65 (>89); GLUCOSE 89 mg/dL (70-100); HDL CHOLESTEROL 43 mg/dL; LDL CHOLESTEROL,CALCULATED 112 mg/dL; LDL/HDL RATIO 2.6 (<4.4); SODIUM 142 mmol/L (135-145); VLDL CHOLESTEROL 20 mg/dL
== END 2019-05-21 08:51 | disposition home or self-care (01) ==
LOC: LAB.N 08:00
PROVIDERS: ATTEND Physician Assistant Medical
DX: Z00.00 Encounter for general adult medical examination without abnormal findings (principal); Z79.899 Other long term (current) drug therapy
CPT/HCPCS: 36415; 80048; 80061; 83721; 84443; 85025

== ENCOUNTER 2019-08-20 09:05 | Outpatient (CLI) | payer MEDICARE, MEDICAID ==
[2019-08-20 12:58] LABS: BILIRUBIN,URINE NEGATIVE (NEGATIVE); GLUCOSE, URINE (UA) NEGATIVE (NEGATIVE); KETONES,URINE (UA) NEGATIVE (NEGATIVE); LEUKOCYTE ESTERASE, URINE TRACE (NEGATIVE); NITRITE,URINE NEGATIVE (NEGATIVE); OCCULT BLOOD,URINE NEGATIVE (NEGATIVE); PH,URINE 5.5 PH (5.0-7.5); PROTEIN,URINE NEGATIVE (NEGATIVE); UROBILINOGEN,URINE 0.2 (NORMAL) E.U./dL (NORMAL)
[2019-08-20 13:03] LABS: CLARITY,URINE CLOUDY (CLEAR)
[2019-08-20 13:10] LABS: BACTERIA,URINE Many /HPF (None Seen); RBC,URINE 0-5 /HPF (0-5); SQUAMOUS EPITHELIAL CELL,UR MANY Squamous (<= Few)
[2019-08-20 13:11] LABS: CRYSTALS,URINE 0-2 Calcium Oxalate /LPF
== END 2019-08-20 23:59 | disposition home or self-care (01) ==
LOC: LAB.N 09:05
PROVIDERS: ATTEND Physician Assistant Medical
DX: R35.0 Frequency of micturition (principal)
CPT/HCPCS: 81001; 81003; 87086

== ENCOUNTER 2019-10-08 10:16 | Outpatient (CLI) | payer MEDICARE, MEDICAID ==
[2019-10-08 12:05] LABS: BASOPHILS # (AUTO) 0.1 10^3/uL (0.0-0.1); BASOPHILS % (AUTO) 1.8 %; EOSINOPHILS # (AUTO) 0.4 10^3/uL (0.0-0.7); EOSINOPHILS % (AUTO) 7.1 %; HGB - HEMOGLOBIN 12.6 g/dL (12.0-16.0); LYMPHOCYTES # (AUTO) 1.3 10^3/uL (1.5-3.5); LYMPHOCYTES % (AUTO) 25.7 %; MEAN CORPUSCULAR HEMOGLOBIN 29.7 pg (27.0-31.0); MEAN CORPUSCULAR HGB CONC 31.5 g/dL (32.0-36.0); MEAN CORPUSCULAR VOLUME 94.3 fL (81.0-99.0); MEAN PLATELET VOLUME 11.6 fL (7.9-10.8); MONOCYTES # (AUTO) 0.5 10^3/uL (0.0-1.0); MONOCYTES % (AUTO) 9.3 %; NEUTROPHILS # (AUTO) 2.8 10^3/uL (1.5-6.6); NEUTROPHILS % (AUTO) 55.9 %; PLT - PLATELET COUNT 160 10^3/uL (130-450); RED BLOOD COUNT 4.24 10^6/uL (4.20-5.40); RED CELL DISTRIBUTION WIDTH 12.9 % (12.0-15.0); WHITE BLOOD COUNT 4.9 x10^3/uL (4.8-10.8)
== END 2019-10-08 23:59 | disposition home or self-care (01) ==
LOC: LAB.N 10:16
PROVIDERS: ATTEND Physician Assistant Medical
DX: D64.9 Anemia, unspecified (principal)
CPT/HCPCS: 36415; 85025

== ENCOUNTER 2019-11-17 13:30 | Outpatient (CLI) | payer MEDICARE, MEDICAID ==
--- NOTE | 2019-11-17 16:10 | Mammography Report ---
Reason: 6 MO FU-CALCS Procedure Date: 11/17/2019 Accession Number: [id number] / [id number] Procedure: DAR - Diagnostic Dig LT CPT Code: Final Report FULL RESULT: EXAM: Diagnostic Dig LT DATE: 11/17/2019 2:21 PM CLINICAL HISTORY: Diagnostic examination. History of nulliparity and personal history of breast cancer in the right breast diagnosed in 2010, status post lumpectomy. TECHNIQUE: (L) - Left CC and MLO views were obtained. Spot magnified CC, spot magnified LM and LM images are obtained. COMPARISON: 03/26/2019 through 11/28/2009. PARENCHYMAL PATTERN: (A) - The breast(s) demonstrate(s) scattered fibroglandular densities. FINDINGS: The probably benign grouping of indeterminate calcifications demonstrates no associated architectural distortion or mass. No convincing interval pleomorphism is seen. There are no suspicious masses or areas of distortion. IMPRESSION: Probably Benign. BI-RADS category 3. RECOMMENDATION: (6MOS) - Recommend 6 month follow-up exam. Mammogram of the left breast with magnification views. BI-RADS CATEGORY: (3) - Probably Benign. STANDARD QUALIFYING STATEMENTS: 1. This examination was not reviewed with the aid of Computer-Aided Detection (CAD). 2. A negative or benign imaging report should not preclude biopsy if clinically suspicious findings are present. 3. Dense breasts may obscure an underlying neoplasm. 4. This examination was reviewed with the aid of 3D breast imaging (tomosynthesis).
== END 2019-11-17 13:31 | disposition home or self-care (01) ==
LOC: DI 13:30
PROVIDERS: ATTEND Physician Assistant Medical
DX: R92.1 Mammographic calcification found on diagnostic imaging of breast (principal); Z85.3 Personal history of malignant neoplasm of breast

== ENCOUNTER 2020-07-05 08:01 | Outpatient (CLI) | payer MEDICARE, MEDICAID ==
[2020-07-05 11:43] LABS: BASOPHILS # (AUTO) 0.1 10^3/uL (0.0-0.1); BASOPHILS % (AUTO) 1.5 %; EOSINOPHILS # (AUTO) 0.4 10^3/uL (0.0-0.7); EOSINOPHILS % (AUTO) 6.6 %; LYMPHOCYTES # (AUTO) 1.5 10^3/uL (1.5-3.5); LYMPHOCYTES % (AUTO) 24.7 %; MEAN CORPUSCULAR HEMOGLOBIN 30.4 pg (27.0-31.0); MEAN CORPUSCULAR HGB CONC 31.6 g/dL (32.0-36.0); MEAN CORPUSCULAR VOLUME 96.5 fL (81.0-99.0); MEAN PLATELET VOLUME 11.8 fL (7.9-10.8); MONOCYTES # (AUTO) 0.5 10^3/uL (0.0-1.0); MONOCYTES % (AUTO) 7.9 %; NEUTROPHILS # (AUTO) 3.5 10^3/uL (1.5-6.6); PLT - PLATELET COUNT 190 10^3/uL (130-450); RED BLOOD COUNT 4.27 10^6/uL (4.20-5.40); WHITE BLOOD COUNT 5.9 x10^3/uL (4.8-10.8)
[2020-07-05 12:05] LABS: ALBUMIN 4.1 g/dL (3.2-5.5); ALBUMIN/GLOBULIN RATIO 1.3 (1.0-2.2); ALKALINE PHOSPHATASE 52 IU/L (42-121); ALT ALANINE AMINOTRANSFERASE 18 IU/L (10-60); AST ASPARTATE AMINOTRANSFERASE 21 IU/L (10-42); BILIRUBIN,TOTAL 0.7 mg/dL (0.2-1.0); BUN - BLOOD UREA NITROGEN 11 mg/dL (6-20); CALCIUM 8.3 mg/dL (8.5-10.3); CARBON DIOXIDE - CO2 25 mmol/L (21-32); CHLORIDE 103 mmol/L (101-111); CHOL/HDL RATIO 3.3 (<4.4); CHOLESTEROL 180 mg/dL; CREATININE 0.8 mg/dL (0.4-1.0); GLUCOSE 99 mg/dL (70-100); HDL CHOLESTEROL 55 mg/dL; LDL CHOLESTEROL,CALCULATED 100 mg/dL; LDL/HDL RATIO 1.8 (<4.4); SODIUM 138 mmol/L (135-145); TOTAL PROTEIN 7.3 g/dL (6.7-8.2); VLDL CHOLESTEROL 25 mg/dL
[2020-07-05 12:57] LABS: FREE T4 (FREE THYROXINE) 1.02 ng/dL (0.58-1.64)
== END 2020-07-05 23:59 | disposition home or self-care (01) ==
LOC: LAB.WCP 08:01
PROVIDERS: ATTEND Physician Assistant
DX: D64.9 Anemia, unspecified (principal); E03.9 Hypothyroidism, unspecified; Z79.899 Other long term (current) drug therapy
CPT/HCPCS: 36415; 80053; 80061; 83721; 84439; 84443; 85025

== ENCOUNTER 2020-07-05 10:44 | Outpatient (CLI) | payer MEDICARE, MEDICAID ==
--- NOTE | 2020-07-06 15:03 | Mammography Report ---
BILATERAL DIGITAL DIAGNOSTIC MAMMOGRAM 3D/2D: 07/05/2020 CLINICAL: Patient returns for 6 month follow up on left breast for calcifications. Comparison is made to exams dated: 11/17/2019 mammogram, 03/26/2019 mammogram, 03/10/2019 mammogram, 12/11 mammogram, 07/27/2013 mammogram, and 11/13/2012 mammogram - [facility]. There are scattered fibroglandular elements in both breasts. There are grouped dystrophic calcifications in the left breast at 7 o'clock posterior depth. These a re not significantly changed. No other significant masses, calcifications, or other findings are seen in either breast. Stable post operative findings in the right breast. IMPRESSION: PROBABLY BENIGN The grouped dystrophic calcifications in the left breast are probably benign. A follow-up left mammogram in 6 months is recommended to demonstrate continued stability. Findings and recommendations were conveyed to the patient during today's evaluation. This exam was interpreted at Station ID: [id number]. NOTE: For mammograms, a report in lay terms will be sent to the patient. Approximately 15% of breast malignancies will not be visualized mammographically. In the management of a palpable breast mass, a negative mammogram must not discourage biopsy of a clinically suspicious lesion. Electronically Signed By: Héctor Marrufo M.D. aty/:07/05/2020 13:04:44 ACR BI-RADS Category 3: Probably benign 3343F PARENCHYMAL PATTERN: (A) - The breast(s) demonstrate(s) scattered fibroglandular densities. BI-RADS CATEGORY: (3) - 3 Mammogram [id number] 6 month follow-up LATERALITY: (L)
== END 2020-07-05 10:45 | disposition home or self-care (01) ==
LOC: DI 10:44
PROVIDERS: ATTEND Physician Assistant
DX: R92.8 Other abnormal and inconclusive findings on diagnostic imaging of breast (principal)
CPT/HCPCS: 77066

== ENCOUNTER 2020-08-16 08:00 | Outpatient (CLI) | payer MEDICARE, MEDICAID ==
[2020-08-16 19:47] LABS: FREE T4 (FREE THYROXINE) 0.91 ng/dL (0.58-1.64)
== END 2020-08-16 23:59 | disposition home or self-care (01) ==
LOC: LAB.WCP 08:00
PROVIDERS: ATTEND Physician Assistant
DX: E03.9 Hypothyroidism, unspecified (principal)
CPT/HCPCS: 36415; 84439; 84443

== ENCOUNTER 2020-08-24 13:24 | Outpatient (CLI) | payer MEDICARE, MEDICAID | END 2020-08-24 13:25 | disposition critical access hospital (66) | LOC: EMS 13:24 | PROVIDERS: ATTEND Surgery | DX: T17.928A Food in respiratory tract, part unspecified causing other injury, initial encounter (principal) | CPT/HCPCS: A0425; A0429 ==

== ENCOUNTER 2020-08-24 13:43 | Emergency (ER) | payer MEDICARE, MEDICAID ==
--- NOTE | 2020-08-24 13:56 | ED Physician Documentation ---
History of Present Illness - Stated complaint Stated Complaint: CHOKING - History obtained from History obtained from: Patient, EMS - History of Present Illness Timing: Prior to arrival - Additonal information Additional information: 55-year-old female was brought into the emergency department for evaluation after a choking event at home. She was reportedly eating pork chops and reports to me that it went down the" wrong pipe." She states to me that she coughed for a long long time and eventually vomited. There is residual vomit on her shirt. She was brought in by EMS. She is not on any oxygen she is alert and oriented. She is speaking and phonating normally. She is tolerating her oral secretions. She denies at this time that she has painful swallow or any shortness of breath. It should be noted that she does have a history of developmental delay but otherwise appears remarkably well and is a very pleasant woman. Review of Systems Constitutional: reports: Reviewed and negative Ears: reports: Reviewed and negative Nose: reports: Reviewed and negative Throat: reports: Other (choking event). denies: Sore throat, Swollen tonsils Cardiac: reports: Reviewed and negative Respiratory: reports: Reviewed and negative GI: reports: Reviewed and negative : reports: Reviewed and negative Skin: reports: Reviewed and negative PD PAST MEDICAL HISTORY - Past Medical History Cardiovascular: None Respiratory: None Endocrine/Autoimmune: HyPOthyroidism GI: None : None HEENT: Chronic vision loss, Other Psych: Other Musculoskeletal: None Derm: Eczema, Rosacea - Past Surgical History General: Cholecystectomy, Appendectomy /APPLICATION SUPPORT TECHNICIAN: Other - Present Medications Home Medications: Ambulatory Orders Medication Instructions Recorded Confirmed Multivitamin [Multivitamins] 1 each PO DAILY 02/02/14 10/01/17 Spironolactone 25 mg PO DAILY PM 09/13/15 10/03/17 Cholecalciferol (Vitamin D3) 1,000 unit PO DAILY 10/01/17 10/02/17 [Vitamin D3] Levothyroxine [Synthroid] 50 mcg PO QDAC 10/01/17 10/03/17 Spironolactone 50 mg PO QDBREAKFAST 10/01/17 10/03/17 Venlafaxine ER [Effexor ER] 187.5 mg PO DAILY 10/01/17 10/03/17 risperiDONE [Risperdal] 1 mg PO DAILY PM 10/01/17 10/03/17 Oxybutynin Chloride [Ditropan Xl] 30 mg PO DAILY 10/03/17 10/03/17 - Allergies Allergies/Adverse Reactions: Allergies Allergy/AdvReac Type Severity Reaction Status Date / Time No Known Drug Allergies Allergy Verified 08/24/20 13:55 PD ED PE EXPANDED - General General: Alert, No acute distress, Well developed/nourished - HEENT HEENT: PERRL, EOMI, Moist mucous membranes, Pharynx normal, Other (Normal phonation. Normal swallow. Tolerating oral secretions. Full range of motion of neck.). No: Pharyngeal erythema, Swollen tonsils, Tonsillar exudate - Eyes Eyes: PERRL - Neck Neck: Supple w/out meningeal sx. No: Adenopathy - Cardiac Cardiac: Regular Rate, Regular Rhythm, Radial strong equal, Pedal strong equal, Cap refill < 2 sec - Respiratory Respiratory: Clear to ausultation shannon, Other (Unremarkable cardiopulmonary auscultation in all lung lowe. Full pulmonary excursion. No hypoxia. Saturating 98% on room air.). No: Distress, Labored, Stridor, Gasping - Abdomen Abdomen: Normal Bowel sounds. No: Tender to palpation - Neuro Neuro: Alert and Oriented X 3, CNII-XII intact, Normal speech - GCS Eye Opening: Spontaneous Motor: Obeys Commands Verbal: Oriented Total: 15 - Psych Psych: Normal Results - Vitals Vitals: Vital Signs - 24 hr 08/24/20 13:49 Temperature 37.1 C Heart Rate 87 Respiratory 16 Rate Blood Pressure 131/98 H O2 Saturation 98 Oxygen O2 Source Room air - Rads (name of study) CXR Radiology: Final report received (no acute process) PD MEDICAL DECISION MAKING - ED course Complexity details: reviewed results, re-evaluated patient, considered differential, d/w patient, d/w family ED course: 55-year-old developmentally delayed woman is transported to the emergency department after choking episode at home where she choked on some pork chop. She did have spontaneous clearance at home and at the time that she arrived here she had no labored respirations, or hypoxia. She is phonating normally and tolerating her oral secretions. She has a normal swallow. Chest x-ray does not show any acute focal abnormality. Patient was able to easily sip liquids here i n the emergency department. She will be discharged home. Emergent return precautions discussed. Departure - Departure Disposition: Home, Self Care Clinical Impression: Choking due to food (regurgitated) Qualifiers: Encounter type: initial encounter Qualified Code(s): T17.320A - Food in larynx causing asphyxiation, initial encounter Condition: Stable Record reviewed to determine appropriate education?: Yes Comments: June I am so sorry that you had a choking event at home today. It looks like you were able to successfully cough up the pork chop. The x-ray of your lungs does not show any worrisome findings. While here in the emergency department you had a normal respiratory exam. You have also been able to sip liquids easily. After any choking event it is normal to have a little bit of discomfort in your throat when you swallow. I do recommend that you take Tylenol or ibuprofen for this. I would like you to return to the emergency department if you develop difficulty breathing, have chest pain, are not able to swallow normally at home or have any other worrisome concerns.
--- NOTE | 2020-08-24 14:26 | XRAY Report ---
PROCEDURE: Chest 1 View X-Ray INDICATIONS: Choking event TECHNIQUE: One view of the chest was acquired. COMPARISON: None FINDINGS: Surgical changes and devices: None. Lungs and pleura: No pleural effusions or pneumothorax. Lungs are clear. Mediastinum: Mildly tortuous thoracic aorta is seen.. Heart size is normal. Bones and chest wall: No suspicious bony lesions. Overlying soft tissues appear unremarkable. IMPRESSION: No acute cardiopulmonary pathology. Reviewed by: Rolan Waller MD on 08/24/2020 2:24 PM [facility] Approved by: Rolan Waller MD on 08/24/2020 2:24 PM [facility] Station ID: [id number]
[2020-08-24 14:58] VITALS: BP 120/80
== END 2020-08-24 15:00 | disposition home or self-care (01) ==
LOC: EDUNIT# → ED 13:43
DX: T17.320A Food in larynx causing asphyxiation, initial encounter (principal); X58.XXXA Exposure to other specified factors, initial encounter
CPT/HCPCS: 99282; 99283

== ENCOUNTER 2020-12-12 07:00 | Outpatient (CLI) | payer MEDICARE, MEDICAID ==
[2020-12-12 18:21] LABS: BASOPHILS # (AUTO) 0.1 10^3/uL (0.0-0.1); BASOPHILS % (AUTO) 1.7 %; EOSINOPHILS # (AUTO) 0.4 10^3/uL (0.0-0.7); EOSINOPHILS % (AUTO) 6.1 %; HCT - HEMATOCRIT 39.6 % (37.0-47.0); HGB - HEMOGLOBIN 12.4 g/dL (12.0-16.0); LYMPHOCYTES # (AUTO) 1.6 10^3/uL (1.5-3.5); LYMPHOCYTES % (AUTO) 27.7 %; MEAN CORPUSCULAR HEMOGLOBIN 30.2 pg (27.0-31.0); MEAN CORPUSCULAR HGB CONC 31.3 g/dL (32.0-36.0); MEAN CORPUSCULAR VOLUME 96.4 fL (81.0-99.0); MONOCYTES # (AUTO) 0.5 10^3/uL (0.0-1.0); NEUTROPHILS # (AUTO) 3.3 10^3/uL (1.5-6.6); NEUTROPHILS % (AUTO) 55.3 %; PLT - PLATELET COUNT 208 10^3/uL (130-450); RED BLOOD COUNT 4.11 10^6/uL (4.20-5.40); RED CELL DISTRIBUTION WIDTH 12.7 % (12.0-15.0); WHITE BLOOD COUNT 5.9 x10^3/uL (4.8-10.8)
[2020-12-12 19:16] LABS: ALBUMIN 4.2 g/dL (3.2-5.5); ALBUMIN/GLOBULIN RATIO 1.4 (1.0-2.2); ALKALINE PHOSPHATASE 51 IU/L (42-121); ALT ALANINE AMINOTRANSFERASE 19 IU/L (10-60); AST ASPARTATE AMINOTRANSFERASE 21 IU/L (10-42); BUN - BLOOD UREA NITROGEN 9 mg/dL (6-20); CALCIUM 8.4 mg/dL (8.5-10.3); CARBON DIOXIDE - CO2 27 mmol/L (21-32); CHLORIDE 100 mmol/L (101-111); CHOL/HDL RATIO 4.3 (<4.4); CHOLESTEROL 204 mg/dL; CREATININE 0.9 mg/dL (0.4-1.0); GFR - MDRD 65 (>89); GLUCOSE 84 mg/dL (70-100); HDL CHOLESTEROL 48 mg/dL; LDL CHOLESTEROL,CALCULATED 129 mg/dL; LDL/HDL RATIO 2.7 (<4.4); POTASSIUM 3.2 mmol/L (3.5-5.0); SODIUM 137 mmol/L (135-145); TOTAL PROTEIN 7.3 g/dL (6.7-8.2); TRIGLYCERIDES 135 mg/dL; VLDL CHOLESTEROL 27 mg/dL
[2020-12-12 19:20] LABS: THYROID STIMULATING HORMONE 3.75 uIU/mL (0.34-5.60)
== END 2020-12-12 23:59 | disposition home or self-care (01) ==
LOC: LAB.WCP 07:00
PROVIDERS: ATTEND Family Medicine
DX: E03.9 Hypothyroidism, unspecified (principal); Z79.899 Other long term (current) drug therapy
CPT/HCPCS: 36415; 80053; 80061; 83721; 84443; 85025

== ENCOUNTER 2021-01-06 10:28 | Outpatient (CLI) | payer MEDICARE, MEDICAID ==
--- NOTE | 2021-01-09 13:29 | Mammography Report ---
UNILATERAL LEFT DIGITAL DIAGNOSTIC MAMMOGRAM 3D/2D: 01/06/2021 CLINICAL: Patient returns for magnification views of microcalcifications in the left breast. Comparison is made to exams dated: 07/05/2020 mammogram, 11/17/2019 mammogram, 03/26/2019 mammogram, mammogram, and 12/12/2015 mammogram - [facility]. There are scattered fibrog landular elements in left breast. Benign calcifications in the left breast at 7 o'clock posterior depth. This is not significantly martha nged. No other significant masses or calcifications are seen in the breast. IMPRESSION: BENIGN There is no mammographic evidence of malignancy. Return to annual mammogram screening schedule is rec ommended. This exam was interpreted at Station ID: [id number]. NOTE: For mammograms, a report in lay terms will be sent to the patient. Approximately 15% of breast malignancies will not be visualized mammographically. In the management of a palpable breast mass, a negative mammogram must not discourage biopsy of a clinically suspicious lesion. Electronically Signed By: Reinier Peña M.D. jr/:01/06/2021 11:19:33 ACR BI-RADS Category 2: Benign Finding(s) 3342F PARENCHYMAL PATTERN: (A) - The breast(s) demonstrate(s) scattered fibroglandular densities. BI-RADS CATEGORY: (2) - 2 RECOMMENDATION: (ANNUAL) - Recommend routine annual screening mammography. [id number] return to screening LATERALITY: (B)
== END 2021-01-06 10:29 | disposition home or self-care (01) ==
LOC: DI 10:28
PROVIDERS: ATTEND Family Medicine
DX: R92.8 Other abnormal and inconclusive findings on diagnostic imaging of breast (principal)

== ENCOUNTER 2021-06-14 13:50 | Outpatient (CLI) | payer MEDICARE, MEDICAID ==
[2021-06-14 18:42] LABS: ALBUMIN 4.1 g/dL (3.2-5.5); ALBUMIN/GLOBULIN RATIO 1.4 (1.0-2.2); BILIRUBIN,TOTAL 0.8 mg/dL (0.2-1.0); CALCIUM 8.5 mg/dL (8.5-10.3); CREATININE 0.9 mg/dL (0.4-1.0); POTASSIUM 4.7 mmol/L (3.5-5.0); TOTAL PROTEIN 7.1 g/dL (6.7-8.2)
== END 2021-06-14 23:59 | disposition home or self-care (01) ==
LOC: LAB.WCP 13:50
PROVIDERS: ATTEND Family Medicine
DX: E87.6 Hypokalemia (principal)
CPT/HCPCS: 36415; 80053

== ENCOUNTER 2022-03-06 14:34 | Outpatient (CLI) | payer MEDICARE, MEDICAID ==
--- NOTE | 2022-03-08 08:59 | Mammography Report ---
BILATERAL DIGITAL SCREENING MAMMOGRAM 3D/2D: 03/06/2022 CLINICAL: Routine screening. Personal history of right breast cancer. Comparison is made to exams dated: 01/06/2021 mammogram, 07/05/2020 mammogram, 11/17/2019 mammogram, mammogram, 03/10/2019 mammogram, and 12/12/2015 mammogram - [facility]. There are scattered fibroglandular elements in both breasts. There are benign calcifications in the left breast. There also are benign post operative findings in the right breast. No significant masses, calcifications, or other findings are seen in either breast. There has been no significant interval change. IMPRESSION: BENIGN There is no mammographic evidence of malignancy. A 1 year screening mammogram is recommended. This exam was interpreted at Station ID: [id number]. NOTE: For mammograms, a report in lay terms will be sent to the patient. Approximately 15% of breast malignancies will not be visualized mammographically. In the management of a palpable breast mass, a negative mammogram must not discourage biopsy of a clinically suspicious lesion. Electronically Signed By: Loy Ureña acr/penrad:03/07/2022 12:22:10 ACR BI-RADS Category 2: Benign Finding(s) 3342F PARENCHYMAL PATTERN: (A) - The breast(s) demonstrate(s) scattered fibroglandular densities. BI-RADS CATEGORY: (2) - 2 RECOMMENDATION: (ANNUAL) - Recommend routine annual screening mammography. [id number] 1 year screening LATERALITY: (B)
== END 2022-03-06 14:35 | disposition home or self-care (01) ==
LOC: DI.N 14:34
DX: Z12.31 Encounter for screening mammogram for malignant neoplasm of breast (principal); Z85.3 Personal history of malignant neoplasm of breast

== ENCOUNTER 2022-03-13 11:21 | Outpatient (CLI) | payer MEDICARE, MEDICAID ==
[2022-03-13 17:44] LABS: BASOPHILS # (AUTO) 0.1 10^3/uL (0.0-0.1); BASOPHILS % (AUTO) 1.1 %; EOSINOPHILS # (AUTO) 0.4 10^3/uL (0.0-0.7); EOSINOPHILS % (AUTO) 6.9 %; HCT - HEMATOCRIT 39.4 % (37.0-47.0); HGB - HEMOGLOBIN 12.6 g/dL (12.0-16.0); LYMPHOCYTES # (AUTO) 1.3 10^3/uL (1.5-3.5); LYMPHOCYTES % (AUTO) 24.5 %; MEAN CORPUSCULAR HEMOGLOBIN 30.8 pg (27.0-31.0); MEAN CORPUSCULAR VOLUME 96.3 fL (81.0-99.0); MEAN PLATELET VOLUME 12.2 fL (7.9-10.8); MONOCYTES # (AUTO) 0.6 10^3/uL (0.0-1.0); MONOCYTES % (AUTO) 10.5 %; NEUTROPHILS % (AUTO) 56.8 %; PLT - PLATELET COUNT 156 10^3/uL (130-450); RED BLOOD COUNT 4.09 10^6/uL (4.20-5.40); RED CELL DISTRIBUTION WIDTH 13.1 % (12.0-15.0); WHITE BLOOD COUNT 5.2 x10^3/uL (4.8-10.8)
[2022-03-13 18:07] LABS: ALBUMIN 3.9 g/dL (3.2-5.5); ALBUMIN/GLOBULIN RATIO 1.2 (1.0-2.2); BILIRUBIN,TOTAL 0.7 mg/dL (0.2-1.0); CALCIUM 8.5 mg/dL (8.5-10.3); CREATININE 0.9 mg/dL (0.4-1.0); POTASSIUM 4.4 mmol/L (3.5-5.0); TOTAL PROTEIN 7.1 g/dL (6.7-8.2)
[2022-03-13 18:16] LABS: THYROID STIMULATING HORMONE 8.97 uIU/mL (0.34-5.60)
[2022-03-13 18:21] LABS: FERRITIN 37.7 ng/mL (11.0-306.8)
== END 2022-03-13 11:22 | disposition home or self-care (01) ==
LOC: LAB.N 11:21
PROVIDERS: ATTEND Family Medicine
DX: D64.9 Anemia, unspecified (principal); E03.9 Hypothyroidism, unspecified
CPT/HCPCS: 36415; 80053; 82607; 82728; 83540; 84443; 84466; 85025

== ENCOUNTER 2023-08-27 14:15 | Outpatient (CLI) | payer MEDICARE, MEDICAID ==
[2023-08-27 17:40] LABS: BASOPHILS # (AUTO) 0.1 10^3/uL (0.0-0.1); BASOPHILS % (AUTO) 0.9 %; EOSINOPHILS # (AUTO) 0.3 10^3/uL (0.0-0.7); EOSINOPHILS % (AUTO) 3.8 %; HCT - HEMATOCRIT 37.5 % (37.0-47.0); HGB - HEMOGLOBIN 11.7 g/dL (12.0-16.0); LYMPHOCYTES # (AUTO) 1.5 10^3/uL (1.5-3.5); LYMPHOCYTES % (AUTO) 20.4 %; MEAN CORPUSCULAR HEMOGLOBIN 29.5 pg (27.0-31.0); MEAN CORPUSCULAR HGB CONC 31.2 g/dL (32.0-36.0); MEAN CORPUSCULAR VOLUME 94.7 fL (81.0-99.0); MEAN PLATELET VOLUME 12.6 fL (7.9-10.8); MONOCYTES # (AUTO) 0.7 10^3/uL (0.0-1.0); MONOCYTES % (AUTO) 8.8 %; PLT - PLATELET COUNT 176 10^3/uL (130-450); RED BLOOD COUNT 3.96 10^6/uL (4.20-5.40); RED CELL DISTRIBUTION WIDTH 12.8 % (12.0-15.0); WHITE BLOOD COUNT 7.5 x10^3/uL (4.8-10.8)
[2023-08-27 18:02] LABS: ALBUMIN 4.2 g/dL (3.2-5.5); ALBUMIN/GLOBULIN RATIO 1.6 (1.0-2.2); ALKALINE PHOSPHATASE 54 IU/L (42-121); ALT ALANINE AMINOTRANSFERASE 15 IU/L (10-60); AST ASPARTATE AMINOTRANSFERASE 19 IU/L (10-42); BILIRUBIN,TOTAL 0.6 mg/dL (0.2-1.0); BUN - BLOOD UREA NITROGEN 11 mg/dL (6-20); CALCIUM 9.3 mg/dL (8.5-10.3); CARBON DIOXIDE - CO2 29 mmol/L (21-32); CHLORIDE 104 mmol/L (101-111); CHOL/HDL RATIO 3.7 (<4.4); CHOLESTEROL 170 mg/dL; CREATININE 0.9 mg/dL (0.6-1.3); GFR - MDRD 65 (>89); GLUCOSE 89 mg/dL (74-104); HDL CHOLESTEROL 46 mg/dL; LDL CHOLESTEROL,CALCULATED 98 mg/dL; LDL/HDL RATIO 2.1 (<4.4); POTASSIUM 4.7 mmol/L (3.5-4.5); SODIUM 139 mmol/L (135-145); TOTAL PROTEIN 6.8 g/dL (6.4-8.9); TRIGLYCERIDES 132 mg/dL (48-352); VLDL CHOLESTEROL 26 mg/dL
[2023-08-27 18:10] LABS: THYROID STIMULATING HORMONE 1.44 uIU/mL (0.34-5.60)
== END 2023-08-27 14:16 | disposition home or self-care (01) ==
LOC: LAB.N 14:15
PROVIDERS: ATTEND Physician Assistant
DX: I10 Essential (primary) hypertension (principal); E03.9 Hypothyroidism, unspecified
CPT/HCPCS: 36415; 80053; 80061; 83721; 84439; 84443; 84481; 85025

== ENCOUNTER 2024-04-01 08:00 | Outpatient (CLI) | payer MEDICARE, MEDICAID ==
[2024-04-01 18:19] LABS: BILIRUBIN,URINE NEGATIVE (NEGATIVE); GLUCOSE, URINE (UA) NEGATIVE (NEGATIVE); KETONES,URINE (UA) NEGATIVE (NEGATIVE); LEUKOCYTE ESTERASE, URINE NEGATIVE (NEGATIVE); NITRITE,URINE NEGATIVE (NEGATIVE); OCCULT BLOOD,URINE NEGATIVE (NEGATIVE); PH,URINE 5.5 PH (5.0-7.5); PROTEIN,URINE NEGATIVE (NEGATIVE); UROBILINOGEN,URINE 0.2 (NORMAL) E.U./dL (NORMAL)
[2024-04-01 18:42] LABS: CLARITY,URINE CLOUDY (CLEAR)
[2024-04-01 18:43] LABS: AMORPHOUS SEDIMENT,UR Marked /LPF; BACTERIA,URINE Moderate /HPF (None Seen); RBC,URINE None Seen /HPF (0-5); SQUAMOUS EPITHELIAL CELL,UR RARE Squamous (<= Few); WBC,URINE 0-3 /HPF (0-5)
== END 2024-04-01 23:59 | disposition home or self-care (01) ==
LOC: LAB.N 08:00
PROVIDERS: ATTEND Family Medicine
DX: R35.0 Frequency of micturition (principal)
CPT/HCPCS: 81001; 81003; 87086